=== PATIENT | male | born 1950 | race Caucasian/White ===

== ENCOUNTER → 2019-11-04 | Outpatient (CLI) | payer MEDICARE ==
[~2019-11-04] MED LIST: ACCUPRIL10 MG PO; ASPIR 8181 MG PO; ATORVASTATIN CA40 MG PO; B-12 COMPL1000 MCG/1 SUBQ; CYMBALTA60 MG PO; EFFIENT10 MG PO; FLEXERIL PO; FLOMAX0.4 MG PO; LOPRESSOR50 PO; METFORMIN HCL500 MG PO; MOBIC15 MG PO; NITROGLYCERIN0.4 MG SL; NITROGLYCERIN0.4 MG SUBLING; NOVOLOG100 UNIT/1 SUBQ; PLAVIX 75 MG TA75 M1; PRILOSEC 20 MG20 MG PO; REQUIP 1 MG TABL1 M1 PO; TOLTERODINE TART4 MG PO; VITAMIN D 5050000 I1 PO
--- NOTE | 2019-11-04 17:17 | CARDNUC ---
[place] [address] CARDIAC NUCLEAR IMAGING REPORT Name: YANETH RO Room: [facility]#: [id number] Admission: 11/04/19 Attend Phys: Beverly Mujica Discharge: Date of : 48 Date of Service: 11/04/19 1716 Report #: [id number] THIS REPORT FOR: //name// APPROVED REPORT Study performed: 11/04/2019 12:30:00 Indication: Dyspnea, Lightheadedness/Dizzy, CAD s/p PCI. Patient Location: Out-Patient Stress Tech: Nicki Bowie Stress Nurse: Mary Logan RN Ht: 5 ft 11 in Wt: 220 lbs BSA: 2.20 m2 BMI: 30.68 Medical History Medical History: Angina, CAD s/p stent, Diabetic Insulin, HTN, Hyperlipidemia, SOB. Medications: ASA 81 MG, Atorvastatin, Clopidogrel, Metoprolol, Quinapril, NTG, Insulin, Metformin. Allergies: No known drug allergies Cardiac Risk Factors: Age, Diabetes (insulin), FHX of CAD, HTN, Hyperlipidemia, SOB. Previous Cardiac Procedures: PCI Pretest Chest Pain Characteristics: No chest pain Exercise History: Indeterminate Physical Disabilities: Dizziness/Lightheadedness Meds Held (24 hrs): Metoprolol, NTG. Resting Data Rest SPECT myocardial perfusion imaging was performed in supine position 30 minutes following the intravenous injection of 10.5 mCi of Tc-99m Sestamibi. Time of rest injection: 13:10 The images were gated to evaluate regional wall motion and calculate left ventricular ejection fraction. Administration Route: IV Administration Site: Right AC Pharmacologic Stress Pharmacologic stress test was performed by injecting Regadenoson 0.4 mg IV push over 10-15 seconds immediately followed by the intravenous injection of 35.2 mCi of Tc-99m Sestamibi. Time of stress injection: 14:45 Administration Route: [place] [address] CARDIAC NUCLEAR IMAGING REPORT Name: YANETH RO [id number] Admission: 11/04/19 Attend Phys: Beverly Mujica Discharge: Date of : 48 Date of Service: 11/04/19 1716 Report #: [id number] Administration Site: Right AC Heart Rate at time of stress injection: 98 bpm. Gated Stress SPECT was performed 45 minutes after stress injection. The images were gated to evaluate regional wall motion and calculate left ventricular ejection fraction. Stress Test Details Stress Test: Pharmacologic stress was paired with low level exercise. Reason for pharmacologic stress test: Dizziness/Lightheadedness. HR Max Heart Rate (APMHR): 151 bpm Resting HR: 81 bpm Target HR (85% APMHR): 128 bpm Max HR Achieved: 126 bpm % of APMHR: 83 Recovery HR: 96 bpm BP Resting BP: 133/65 mmHg Max BP: 130/52 mmHg Recovery BP: 169/74 mmHg ECG Resting ECG: Sinus Rhythm Stress ECG: Sinus Tachycardia ST Change: Downsloping ST depression Maximum ST Deviation: 2 mm Arrhythmia: None Recovery ECG: Sinus Rhythm Recovery ST Change: Downsloping ST depression Recovery ST Deviation: 2 mm Recovery Arrhythmia: None Clinical Reason for Termination: Completed protocol Stress Symptoms: Dyspnea, Flushed/Warmth, Lightheaded, Headache. Exercise duration: 4 min 00 sec Exercise capacity: 2.30 METs The patient tolerated Lexiscan infusion without significant cardiac symptoms. Nurse Comments A 68 year old male presented for walking Lexiscan r/t recent increased dyspnea and dizziness s/p PCI. [place] [address] CARDIAC NUCLEAR IMAGING REPORT Name: YANETH RO Room: [facility]#: [id number] Admission: 11/04/19 Attend Phys: Beverly Mujica Discharge: Date of : 48 Date of Service: 11/04/19 1716 Report #: [id number] with partial amputated toes and neuropathy. Recovery unremarkable with PO caffeine, effective. Patient was escorted to Nuclear Medicine for images. Patient was stable and stated he felt good at that time. Stress ECG Conclusion Baseline 12-lead EKG shows sinus rhythm with very subtle ST segment depression isolated to lead 3 approximately 0.5 mm in horizontal fashion. EKGs obtained during and post Lexiscan infusion show [address] segment depression diffusely persists 6 minutes into recovery. Study Quality Study: Good Artifact: Mild Diaphragmatic artifact Study Data At rest, the left ventricular ejection fraction was 63%.. Post stress, the left ventricular ejection was 73%.. TID = 1.01. Perfusion There is a moderate size mild intensity reversible defect involving the mid to distal inferolateral wall. No other significant reversible defects were identified. There is mild photopenia of the inferior wall likely due to diaphragmatic attenuation artifact. Wall Motion There is a septal wall motion abnormality noted of uncertain significance. There is mild hypokinesis of the inferior wall. Global LV systolic function is preserved. Nuclear Conclusion ECG Findings: positive for ischemia Clinical Findings: negative for ischemia Nuclear Findings: positive for ischemia Exercise Capacity: not assessed Left Ventricular Function: preserved Risk Study: moderate Perfusion images to suggest mild ischemia involving the mid to distal inferolateral wall. Global LV systolic function is preserved. This is a moderate risk study. <Conclusion> Baseline 12-lead EKG shows sinus rhythm with very subtle ST segment depression isolated to lead 3 approximately 0.5 [place] [address] CARDIAC NUCLEAR IMAGING REPORT Name: YANETH RO [facility] [id number] Admission: 11/04/19 Attend Phys: Beverly Mujica Discharge: Date of : 48 Date of Service: 11/04/19 1716 Report #: [id number] fashion. EKGs obtained during and post Lexiscan infusion show [address] segment depression diffusely persists 6 minutes into recovery. <ELECTRONICALLY SIGNED> By: Sergio Clancy MD, FACC 11/04/191715 15 15 Sergio Clacny MD, FACC /INF
== END ==
LOC: M.NUC 04-22 15:15
DX: I25.10 Atherosclerotic heart disease of native coronary artery without angina pectoris (principal); I10 Essential (primary) hypertension; E11.8 Type 2 diabetes mellitus with unspecified complications; Z79.4 Long term (current) use of insulin; Z95.5 Presence of coronary angioplasty implant and graft

== ENCOUNTER 2019-11-27 07:41 | Observation (INO) | payer MEDICARE ==
[~2019-11-27] VITALS: Ht 180.3 cm; Wt 94.3 kg
[2019-11-27] VITALS (15 sets, daily range): BP systolic 108–160; BP diastolic 49–72
--- NOTE | ~2019-11-27 | D ---
[address] [address] DISCHARGE SUMMARY Name: YANETH RO Room: [address] Jade Neely#: [id number] Admission: 11/27/19 Attend Phys: Sami Turner MD, Discharge: 11/28/19 Date of : 48 Report #: [id number] THIS REPORT FOR: //name// CC: KIMBERLY Turner DATE OF SERVICE: 11/28/2019 FINAL DISCHARGE DIAGNOSES: 1. Abnormal nuclear stress test. 2. Unstable angina. 3. Coronary artery disease. 4. Status post percutaneous coronary intervention of the right coronary artery. 5. Diabetes. 6. Hypertension. 7. Hypercholesterolemia. 8. Exogenous obesity. PROCEDURES: 11/27/2019 -- left heart catheterization, left ventriculography, selective coronary arteriography and angioplasty, atherectomy and stenting of the mid right coronary artery. The patient is a very pleasant 69-year-old male with complex coronary artery disease in the context of diabetes, hypertension and hypercholesterolemia. He had a recently abnormal nuclear stress test with inducible inferior ischemia. Catheterization revealed modest LAD and circumflex disease with 90% mid right coronary in-stent restenosis and 50% distal right coronary narrowing. I performed angioplasty, arthrotomy/atherectomy and stenting of the mid right coronary artery with 10% residual narrowing and HORTENCIA 3 flow of the distal vessel. He did well post-procedurally and there was good hemostasis at the right femoral site of catheterization. He ambulated without difficulty. LABORATORY DATA: On 11/28/2019 revealed sodium 138, potassium 4.6, BUN 15, creatinine 1.2 (renal function parameter is stable from preop glucose 127 mg percent). White blood cell count 8200, hemoglobin 11.3, platelets 290,000. DISCHARGE MEDICATIONS: The patient was discharged to home on the following medications: Aspirin 81 mg daily, atorvastatin 40 mg daily, cyanocobalamin subcutaneously every 2 weeks, cyclobenzaprine 10 mg t.i.d., duloxetine or Cymbalta 60 mg daily, ergocalciferol 50,000 units weekly, NovoLog insulin 1 [place] [address] DISCHARGE SUMMARY Name: YANETH RO Room: [address] Jade Neely#: [id number] Admission: 11/27/19 Attend Phys: Sami Turner MD, Discharge: 11/28/19 Date of : 48 Report #: [id number] of subcutaneous as directed, meloxicam 15 mg daily, metformin 500 mg b.i.d. to be resumed on 11/29/2019, metoprolol succinate 50 mg daily, omeprazole 20 mg daily, prasugrel or Effient 10 mg daily with a 60 mg ryan-procedural dose, quinapril 5 mg daily, ropinirole or Requip 1 mg t.i.d., tamsulosin 0.4 mg daily, tolterodine tartrate 4 mg daily, and p.r.n. sublingual nitroglycerin. Schedule to see the patient in the office on 12/29/2019. Therefore, the patient is discharged to home in stable condition on the aforementioned medications with followup as described above. By: [id number] Félix Turner MD, FACC /nt
[~2019-11-27 07:41] MED LIST changes: -ATORVASTATIN CA40 MG PO; +LIPITOR 40 MG T40 M1 PO; -LOPRESSOR50 PO; -PRILOSEC 20 MG20 MG PO; +PRILOSEC OTC20 MG PO; +TOPROL XL50 MG PO; -VITAMIN D 5050000 I1 PO; +VITAMIN D50000 UNIT PO
[2019-11-27 08:20] LABS: HEMATOCRIT 35.3 % (42.0-52.0); HEMOGLOBIN 11.9 gm/dL (14.0-18.0); MCH 30.3 pg (26.0-34.0); MCHC 33.7 g/dL (28.0-37.0); MCV 89.7 fL (80.0-100.0); MPV 6.7 fl. (7.2-11.1); RBC 3.93 mil/uL (4.50-6.00); RDW-CV 14.5 % (10.5-14.5); WBC 7.6 thou/uL (4.0-11.0)
[2019-11-27 08:31] LABS: APTT 30.2 Seconds (25.0-31.3); INR 1.1; PROTIME 11.6 Seconds (9.20-11.50)
[2019-11-27 09:10] LABS: ANION GAP 12 mmol/L (7-16); BUN 21 mg/dL (7-18); CALCIUM 7.5 mg/dL (8.5-10.1); CHLORIDE 100 mmol/L (98-107); CO2 24 mmol/L (21-32); CREATININE 1.4 mg/dL (0.6-1.3); GLUCOSE 165 mg/dL (70-99); SODIUM 136 mmol/L (136-145)
[2019-11-27 09:14] LABS: ALBUMIN 3.4 g/dL (3.4-5.0); ALKALINE PHOSPHATASE 80 U/L (46-116); CHOLESTEROL 94 mg/dL (<200); HDL CHOLESTEROL 50 mg/dL (>40); LDL CHOLESTEROL 26 mg/dL (<100); SGOT 23 U/L (15-37); SGPT 27 U/L (30-65); TC:HDL 1.9 Ratio (Not establshd); TOTAL BILIRUBIN 0.5 mg/dL (<0.1-1.0); TRIGLYCERIDE 94 mg/dL (<150); VLDL 19 mg/dL (<40)
[2019-11-27 09:15] LABS: SERUM ASSESSMENT Clear
--- NOTE | 2019-11-27 12:38 | EKG ---
[place] [address] ELECTROCARDIOGRAM REPORT Name: YANETH RO Room: [address]R.#: [id number] Admission: 11/27/19 Attend Phys: Sami Turner MD, Discharge: Date of : 48 Report #: [id number] THIS REPORT FOR: //name// [facility] Test Date: 2019-11-27 Test Time: 08:22:50 Pat Name: YANETH RO Department: Room: [facility] Gender: M Bond Analyst: : 1950 Requested By: Sami Turner Order Number: [id number] Reading MD: Sancho Caban Measurements Intervals [place] Rate: 79 P: 0 ME: 178 QRS: -1 QRSD: 98 T: -43 QT: 348 QTc: 399 Interpretive Statements Sinus rhythm Borderline T abnormalities, inferior leads Compared to ECG 10/09/2017 12:50:46 Prolonged QT interval no longer present T-wave abnormality still present Electronically Signed On 11-27-2019 12:38:03 STATE GAME PROTECTOR by Sancho Caban [email or web address] <ELECTRONICALLY SIGNED> By: Sancho Caban MD, [facility] 11/27/19 1238 1 1 Sancho Caban MD, [facility] /EPI
--- NOTE | 2019-11-27 15:57 | CARD ---
[address] [address] CARDIAC CATH REPORT Name: YANETH RO Room: [address] Jade MRica#: [id number] Admission: 11/27/19 Attend Phys: Sami Turner MD, Discharge: Date of : 48 Report #: [id number] THIS REPORT FOR: //name// APPROVED REPORT Study performed: 11/27/2019 08:02:13 Patient Details Patient Status: Out-Patient Room #: The patient is a 69 year-old male Event Personnel Sami Turner Butt Sawyer, Rhona Vanegas RN Certified Medical Technician, Jason Wilson ScrubMaribell Becki RTR Monitor Procedures Performed Art Access - R femoral artery, Left Heart Cath w/or w/o Coronaries LHC, GIL w/Atherectomy Single RCA DESATH, Hemostasis w/ Angioseal Indication Unstable angina , Positive stress test Risk Factors Hypercholesterolemia, Hypertension, Diabetes Admission/Lab Medications/Medications given during procedure Oxygen Nasal cannula 2 l per min, Lidocaine Subcut 18 ml, Angiomax IV bolus 15 mg per kg, Angiomax IV 35 mg per kg, Effient PO 60 mg, Aspirin PO 162 mg Procedure Narrative The patient was brought electively to the Cardiac Catheterization Laboratory and was prepped and draped in a sterile manner. The right femoral was infiltrated with 2% Lidocaine subcutaneous anesthesia. A 6F Hamlin sheath was inserted into the right femoral artery. Coronary angiography was performed using coronary diagnostic catheters. The right coronary system was accessed and visualized with a 6F JR4 catheter. The left coronary system was accessed and visualized with a 6F JL4 catheter. The left ventricle was accessed and visualized with a 6F Pigtail catheter. Left ventricular/Aortic Valve gradient assessed via catheter pullback. Left ventriculogram was performed in HAWKINS projection. Pre-demployment femoral angiogram was performed . Closure device was deployed with a 6 Fr Angioseal STS. The patient tolerated the procedure well [place] [address] CARDIAC CATH REPORT Name: YANETH RO Room: [address]#: [id number] Admission: 11/27/19 Attend Phys: Sami Turner MD, Discharge: Date of : 48 Report #: [id number] complications associated with the procedure. Case start time 09:46 am. Case end time 11:08 am. Intraoperative Conscious Sedation Sedation start time: 10:21 Case end Time: 11:08 Versed 1 mg Fluoro Time: 16.2 minutes Dose: DAP 570871 cGycm2 2046 mGy Contrast Type and Amount: Visipaque 235 ml Diagnostic Cath Left Main 0% narrowing LAD 30% proximal 40% mid and 80% distal LAD stenosis Circumflex Prominent though nondominant vessel with 40% mid and distal narrowings Right Coronary Dominant vessel with 90% mid right coronary in-stent restenosis and 50% distal narrowing Left Ventriculography The left ventricle is normal in size with normal contractility. The left ventricular ejection fraction is estimated to be 55%. Left ventricular wall motion abnormalities are not present. There is no mitral insufficiency. Hemodynamics The aortic pressure is 126/54 mmHg with a mean of 85 mmHg. The left ventricular pressure is 122/3 mmHg with a mean of mmHg. The left ventricular end diastolic pressure is 14 mmHg. There was no gradient across the aortic valve upon pullback. PCI Technique Lesion Anticoagulation was achieved with Angiomax. Patient was preloaded with Angiomax IV bolus 15 mg per kg. Percutaneous coronary intervention was performed on the mid right coronary artery. The lesion stenosis prior to intervention was 90% with HORTENCIA 3 flow. A 6F Launcher JR 4 Guide Catheter was used to engage the ostium. A ProwaterFlex 180CM and BMW 190CM Interventional Guidewire was used to cross the lesion. BALLOON DILATION A Balloon catheter NC Trek RX 2.5 X 12 was inserted and inflated up to 16.00atm for 12seconds. Additional Inflation: 18.00atm for 14seconds. Additional Inflation: 20.00atm for 8seconds. A 2.5 x 10 [place] [address] CARDIAC CATH REPORT Name: YANETH RO Room: [facility] Jade MRica#: [id number] Admission: 11/27/19 Attend Phys: Sami Turner MD, Discharge: Date of : 48 Report #: [id number] AngioSculpt athrectomy balloon was inserted and inflated up to14 kavon for 13 seconds. Additional inflation: 16 kavon for 12 seconds. STENT DEPLOYMENT A drug-eluting stent Xience Praveena 2.5X12mm was inserted and inflated up to 16.00atm for 10seconds. Additional Inflation: 20.00atm for 11seconds. Additional Inflation: 22.00atm for 9seconds. POST STENT DEPLOYMENT BALLOON DILATION A Balloon catheter NC Trek RX 2.5 X 12 was inserted and inflated up to 22.00atm for 12seconds. Additional Inflation: 24.00atm for 13seconds. Final angiography reveals 20 % stenosis with HORTENCIA 3 flow. Conclusion #1 significant coronary artery disease characterized by the following: A 30% proximal 40% mid and 80% distal LAD stenosis B 40% mid and distal circumflex narrowing C dominant right coronary artery with 90% focal mid right coronary in-stent restenosis and 50% distal narrowing #2 normal left ventricular systolic function, estimate ejection fraction of 55% #3 normal left-sided hemodynamics study #4 successful angioplasty atherotomy/atherectomy and stenting of the mid right coronary artery with 20% residual narrowing following final stent deployment and HORTENCIA-3 flow to the distal vessel Recommendations Cardiac Risk Reduction Program Aggressive Medical Therapy Medications Administered Aspirin (any) [place] [address] CARDIAC CATH REPORT Name: YANETH RO Room: [address] Jade Neely#: [id number] Admission: 11/27/19 Attend Phys: Sami Turner MD, Discharge: Date of : 48 Report #: [id number] Diagnostic Cath Approved by: Sami Turner MD Date/Time: 11/27/2019 15:55:46 <ELECTRONICALLY SIGNED> By: Sami Turner MD, [facility] 11/27/19 1557 1557 1557Jokoki Turner MD, FAC /INF
--- NOTE | 2019-11-27 18:51 | NUR ---
PT VSS, A&OX4, NSR ON TELE, POST CATH, DRESSING INTACT, GAUZE AND TEGADERM, BLOODY DRAINAGE, STAND BY ASSIST UNTIL REVIEWED BY RN, HOURLY ROUNDING PERFORMED, POSSESSIONS AND CALL LIGHT WITHIN REACH.
[2019-11-28] VITALS: BP 130/52
[2019-11-28 04:00] VITALS: BP 151/88
[2019-11-28 06:03] LABS: HEMATOCRIT 33.5 % (42.0-52.0); HEMOGLOBIN 11.3 gm/dL (14.0-18.0); MCH 30.3 pg (26.0-34.0); MCHC 33.8 g/dL (28.0-37.0); MCV 89.6 fL (80.0-100.0); MPV 7.2 fl. (7.2-11.1); RBC 3.74 mil/uL (4.50-6.00); RDW-CV 14.5 % (10.5-14.5); WBC 8.2 thou/uL (4.0-11.0)
[2019-11-28 06:24] LABS: ALBUMIN 3.3 g/dL (3.4-5.0); ALKALINE PHOSPHATASE 78 U/L (46-116); ANION GAP 6 mmol/L (7-16); BUN 15 mg/dL (7-18); CALCIUM 8.2 mg/dL (8.5-10.1); CHLORIDE 104 mmol/L (98-107); CO2 28 mmol/L (21-32); CREATININE 1.2 mg/dL (0.6-1.3); GLUCOSE 127 mg/dL (70-99); POTASSIUM 4.6 mmol/L (3.5-5.1); SGOT 19 U/L (15-37); SGPT 22 U/L (30-65); SODIUM 138 mmol/L (136-145); TOTAL BILIRUBIN 0.5 mg/dL (<0.1-1.0); TOTAL PROTEIN 6.7 g/dL (6.4-8.2); TROPONIN-I LEVEL <0.06 ng/mL (<0.06)
[2019-11-28 07:56] VITALS: BP 160/67
--- NOTE | 2019-11-28 11:17 | EKG ---
[place] [address] ELECTROCARDIOGRAM REPORT Name: YANETH RO Room: [address] M.R.#: [id number] Admission: 11/27/19 Attend Phys: Sami Turner MD, Discharge: Date of : 48 Report #: [id number] THIS REPORT FOR: //name// [facility] Test Date: 2019-11-27 Test Time: 11:51:02 Pat Name: YANETH RO Department: Room: [facility] Gender: M Classroom Technology Coach: : 1950 Requested By: Sami Turner Order Number: [id number] Reading MD: Sancho Caban Measurements Intervals [place] Rate: 73 P: -10 AK: 179 QRS: 6 QRSD: 103 T: -63 QT: 379 QTc: 418 Interpretive Statements Sinus rhythm Borderline T abnormalities, inferior leads Compared to ECG 11/27/2019 08:22:50 No significant changes Electronically Signed On 11-28-2019 11:16:49 RN FIELD by Sancho Caban [email or web address] <ELECTRONICALLY SIGNED> By: Sancho Caban MD, [facility] 11/28/19 1116 115 115 Sancho Caban MD, FACC /EPI
--- NOTE | 2019-11-28 17:26 | NUR ---
KATHLEEN RECEIVED TO DISCHARGE [facility] TO SELF CARE. RIGHT GROIN SITE SOFT AND NON TENDER. MED REC, MEDICTION EDUCATION, STROKE EDUCATION, AND NEED FOR FOLLOW UP APPOINTMENT WITH BOTH PRIMARY CARE AND DR TAVAREZ. ROMANA BRUCE COMPLPETD FOR PATIENT SAFETY. IV AND TELEMETRY PACK REMOVED. PATIENT CHOSE TO AMBULATE TO AWAITING CAR WITH SPOUSE PRESENT. DC TIME OF 12:00.
== END 2019-11-28 12:08 | disposition home or self-care (01) ==
LOC: M.CL 07:41 → M.TBA-CV 10:37 → M.2W 11:46
PROVIDERS: ADMIT Internal Medicine
DX: I25.110 Atherosclerotic heart disease of native coronary artery with unstable angina pectoris (principal); E11.9 Type 2 diabetes mellitus without complications; I10 Essential (primary) hypertension; E78.00 Pure hypercholesterolemia, unspecified; E66.09 Other obesity due to excess calories; Z68.29 Body mass index [BMI] 29.0-29.9, adult; Z79.84 Long term (current) use of oral hypoglycemic drugs; Z79.899 Other long term (current) drug therapy; Z79.82 Long term (current) use of aspirin

== ENCOUNTER → 2020-10-26 | Outpatient (CLI) | payer MEDICARE ==
--- NOTE | 2020-10-26 16:48 | CARDNUC ---
[place] [address] CARDIAC NUCLEAR IMAGING REPORT Name: ROYANETH Cheryl Room: [facility]#: [id number] Admission: 10/26/20 Attend Phys: Beverly Mujica Discharge: Date of : 48 Date of Service: 10/26/20 1648 Report #: [id number] THIS REPORT FOR: cc: JOHN ARGUETA GABRIELLE T. DO Liston, Michael J. MD [facility] ~ APPROVED REPORT Study performed: 10/26/2020 14:55:45 Exam: Nuclear Stress Test Indication: Chest pain Patient Location: Out-Patient Stress Tech: Mayelin Mcdaniel NM Tech:KISHORE Leal Ht: 5 ft 11 in Wt: 229 lbs BSA: 2.23 m2 BMI: 31.93 Medical History Medical History: Angina, Sleep Apnea, COPD, Class 1 BMI, DM insulin pump, HTN, HLD, Strong family HX of CAD, CAD s/p stent, Tachycardia. Medications: ASA 81 Mg, Atorvastatin, Metoprolol, NTG, Effient. Allergies: No known drug allergies Cardiac Risk Factors: Age, Diabetes (insulin), FHX of CAD, HTN, Hyperlipidemia, Tachycardia, Obesity. Previous Cardiac Procedures: PCI Pretest Chest Pain Characteristics: No chest pain Exercise History: Indeterminate Physical Disabilities: Irregular Tachycardia HR, COPD. Meds Held (24 hrs): Metoprolol, NTG. Stress Test Details Stress Test: Pharmacologic stress testing performed using 0.4 mg of regadenoson per 5 mL given IV over 10 seconds. Reason for pharmacologic stress test: Irregular Tachycardia HR, COPD.. HR Resting HR: 108 bpm Max Heart Rate (APMHR): 150 bpm Max HR Achieved: 136 bpm Target HR (85% APMHR): 127 bpm % of APMHR: 90 [place] [address] CARDIAC NUCLEAR IMAGING REPORT Name: YANETH RO Room: [facility]#: [id number] Admission: 10/26/20 Attend Phys: Beverly Mujica Discharge: Date of : 48 Date of Service: 10/26/20 1648 Report #: [id number] Recovery HR: 109 bpm BP Resting BP: 127/63 mmHg Max BP: 101/54 mmHg ECG Resting ECG: Sinus tachycardia, nonspecific ST-T abnormalities Stress ECG: Sinus tachycardia, nonspecific ST-T abnormalities ST Change: None Arrhythmia: VPC's Recovery ECG: Sinus tachycardia, nonspecific ST-T abnormalities Recovery ST Change: None Recovery Arrhythmia: VPC's Clinical Reason for Termination: Completed protocol Stress Symptoms: Dyspnea, Headache. Exercise duration: 00 min 00 sec Exercise capacity: 1.00 METs The patient tolerated walking Lexiscan protocol without significant cardiac symptoms. Nurse Comments A 69 year old male presented for a sitting Lexiscan r/t chest pain, irregular tachycardia, HTN, s/p CAD PCI. Test well tolerated. Recovery unremarkable with continued tachycardia, asymtomatic. Patient was stable and stated he felt good when escorted to Nuclear Medicine for imaging. Stress ECG Conclusion The baseline twelve-lead EKG shows sinus tachycardia with diffuse ST segment depression and T wave surgeon. EKGs obtained during and post walking Lexiscan protocol show sinus tachycardia with no significant ST segment changes when compared to baseline. There were occasional unifocal premature ventricular contractions noted. NM EXAM: Myocardial Perfusion REST/STRESS Imaging Protocol: Rest Tc-99m/Stress Tc-99m 1 day Resting Data Rest SPECT myocardial perfusion imaging was performed in supine position 30 minutes following the intravenous injection of 9.6 [place] [address] CARDIAC NUCLEAR IMAGING REPORT Name: YANETH RO Room: [facility]#: [id number] Admission: 10/26/20 Attend Phys: Beverly Mujica Discharge: Date of : 48 Date of Service: 10/26/20 1648 Report #: [id number] Tc-99m Sestamibi. Time of rest injection: 1315 Date: 10/26/2020 The images were gated to evaluate regional wall motion and calculate left ventricular ejection fraction. Administration Route: IV Administration Site: Left Hand Pharmacologic Stress Pharmacologic stress test was performed by injecting Regadenoson 0.4 mg IV push followed by the intravenous injection of 31.3 mCi of Tc-99m Sestamibi. Time of stress injection: 1440 Date: 10/26/2020 Administration Route: IV Administration Site: Left Hand Gated Stress SPECT was performed 40 minutes after stress injection. The images were gated to evaluate regional wall motion and calculate left ventricular ejection fraction. Prone imaging was performed. Study Quality Study: Good Artifact: Mild Diaphragmatic artifact Study Data At rest, the left ventricular ejection fraction was 65%.. Post stress, the left ventricular ejection was 79%.. TID = 0.94. Perfusion Perfusion images show a moderate sized moderate intensity fixed defect involving the mid to basal inferior wall. No other significant fixed or reversible defects are identified. Wall Motion Global LV systolic function is normal on gated images. Review of the raw data shows no obvious wall motion abnormality. Nuclear Conclusion ECG Findings: non-diagnostic Clinical Findings: negative for ischemia Nuclear Findings: negative for ischemia Exercise Capacity: not assessed Left Ventricular Function: normal Risk Study: low Perfusion study suggest possible prior basal [place] [address] CARDIAC NUCLEAR IMAGING REPORT Name: YANETH RO Room: RAMIREZ Neely#: [id number] Admission: 10/26/20 Attend Phys: Beverly Mujica Discharge: Date of : 48 Date of Service: 10/26/20 1648 Report #: [id number] infarct with preserved left ventricular systolic function. This is a low risk study. <Conclusion> The baseline twelve-lead EKG shows sinus tachycardia with diffuse ST segment depression and T wave surgeon. EKGs obtained during and post walking Lexiscan protocol show sinus tachycardia with no significant ST segment changes when compared to baseline. There were occasional unifocal premature ventricular contractions noted. <ELECTRONICALLY SIGNED> By: Sergio Clancy MD, FACC 10/26/20 1648 1648 Sergio Clancy MD, FACC /INF
== END ==
LOC: M.NUC 05-02 08:45
PROVIDERS: ATTEND Internal Medicine
DX: I25.118 Atherosclerotic heart disease of native coronary artery with other forms of angina pectoris (principal); I10 Essential (primary) hypertension; E11.9 Type 2 diabetes mellitus without complications; E78.2 Mixed hyperlipidemia; Z79.4 Long term (current) use of insulin; Z95.5 Presence of coronary angioplasty implant and graft